=== PATIENT | male | born 1975 ===

== ENCOUNTER 2016-06-20 15:05 | Emergency (ER) | payer OTHER ==
--- NOTE | 2016-06-20 15:38 | UC ---
Back Pain HPI - HPI Summary HPI Summary: The patient comes in today for: 1. Back pain: Onset: 2 days initially, but he states that he has pain for "years." Palliative/provocative: Movement seems to be associated with some relief. Laying for "any amount of time" makes the pain worse. Quality: Sharp, and constant dull Region: Lower left back with radiation down the left leg. Severity: 11/27 Time: Constant. Associated symptoms: Work: He is in construction. Event: Nothing specific caused the back pain. Treatment: Ibuprofen 1200 mg plus 2 regular today at 10 AM Previous care: He saw a physician about 5 years ago. Diagnosis (MRI done) showed a mild bulging disk and degenerative disc disease. Bowel/bladder incontinence: None. Unexpected weight loss: None. Fevers: None. Numb left fingers--(thumb, index finger and middle finger) for "a couple of months." Travel Pt strength if "Pretty good." But, in the morning he states it is a bit weak. He states that he is ambidextrous. PCP: None--[facility]. He can't remember who the specialist was for his back. Spasm: present from time to time. * - History of Current Complaint Chief Complaint: UCBackPain Stated Complaint: BACK PAIN Time Seen by Provider: 06/20/16 15:20 Hx Obtained From: Patient, Family/Health Promotion Specialist - Allergies/Home Medications Allergies/Adverse Reactions: Allergies Allergy/AdvReac Type Severity Reaction Status Date / Time BROAD SPECTRUM ANTIBIOTIC Allergy Severe GI Uncoded 06/20/16 15:18 UPSET/PAIN Home Medications: Home Medications Aspirin TAB* 650 mg PO PRN 06/20/16 [History] Ibuprofen TAB* [Advil TAB*] 6 tab PO PRN 06/20/16 [History] PMH/Surg Hx/FS Hx/Imm Hx Previously Healthy: Yes Endocrine History Of: Denies: Diabetes, Thyroid Disease, Hyperthyroidism, Hypothyroidism, Dyslipidemia Cardiovascular History Of: Denies: Cardiac Disorders, Hypertension, Pacemaker/ICD, Myocardial Infarction , Congestive Heart Failure, Atrial Fibrillation, Deep Vein Thrombosis, Bleeding Disorders Respiratory History Of: Denies: COPD, Asthma, Bronchitis, Pneumonia, Pulmonary Embolism GI/ History Of: Denies: Gastroesophageal Reflux, Ulcer, Gastrointestinal Bleed, Gall Bladder Disease, Kidney Stones, Diverticulitis, Renal Disease, Urosepsis Neurological History Of: Denies: TIA, CVA, Dementia, Seizures, Migraine Psychological History Of: Denies: Anxiety, Depression, Bipolar Disorder, Schizophrenia, Post Traumatic Stress Disorder Cancer History Of: Denies: Lung Cancer, Colorectal Cancer, Breast Cancer, Prostate Cancer, Cervical Cancer Other History Of: Negative For: HIV, Hepatitis B, Hepatitis C, Anticoagulant Therapy - Surgical History Surgical History: None - Family History Known Family History: Negative: Cardiac Disease, Hypertension - Social History Occupation: Employed Full-time Alcohol Use: None Substance Use Type: None Smoking Status (MU): Current Every Day Smoker Type: Cigarettes Amount Used/How Often: <1 PPD Review of Systems Constitutional: Negative Skin: Negative Eyes: Negative ENT: Negative Respiratory: Negative Cardiovascular: Negative Gastrointestinal: Negative Genitourinary: Negative Musculoskeletal: Myalgia All Other Systems Reviewed And Are Negative: Yes Physical Exam Triage Information Reviewed: Yes Appearance: Well-Appearing, Well-Nourished, Pain Distress - The patient came into the examination room leaning to one side. Even slight movement was associated with spasms which were jolting to the patient and at one point lead to the patient crying for a short time. This was worse with movement during the back exam. Vital Signs: Initial Vital Signs Temp 98.4 F 06/20/16 15:14 Pulse 120 06/20/16 15:14 Resp 18 06/20/16 15:14 BP 139/94 06/20/16 15:14 Pulse Ox 99 06/20/16 15:14 Vital Signs Reviewed: Yes Eyes: Positive: Conjunctiva Clear. Negative: Discharge ENT: Positive: Hearing grossly normal. Negative: Pharyngeal erythema, Nasal congestion, Nasal drainage, TM bulging, TM dull, TM red, Tonsillar swelling, Tonsillar exudate Dental: Negative: Gross Decay/Caries @, Dental Fracture @ Neck: Positive: Supple, Nontender, No Lymphadenopathy. Negative: Nuchal Rigidity Respiratory: Positive: Lungs clear, No respiratory distress, No accessory muscle use. Negative: Crackles, Rhonchi, Wheezing Cardiovascular: Positive: RRR, No Murmur Abdomen Description: Positive: Nontender, No Organomegaly, Soft. Negative: Distended, Guarding Musculoskeletal: Positive: Strength Intact, ROM Limited @, Other: - Back: He has marked tenderness along the right paraspinous musculature in the lumbar region. He has limited movement with left flexion--a bit more on the right. There was no extention and forward flexion was associated with increased spasm and the patient crying. He had almost full extension of this legs, but this was associated with pain going down his thigh on the left. The DTR were 0/2 for both legs in terms of leg movement, but there was twitching of the quadriceps muscles. There was very little movement with Achilles tendon percussion. Neurological: Positive: Alert, Muscle Tone Normal Psychological: Positive: Age Appropriate Behavior, Consolable Skin: Negative: rashes, breakdown Back Pain Course/Dx - Course Course Of Treatment: Patient told of his diagnostic and treatment options. At this time, he did not want a repeat of his lumbar spine x-ray, but was agreeable to taking pain medication and muscle relaxers. He promised that he would follow up with his primary care provider at [facility] tuesday and would go to the ER if he gets worse. - Differential Dx/Diagnosis Provider Diagnoses: Lower back pain (muscular strain, spasm, possible herniated disc). Discharge - Discharge Plan Condition: Stable Disposition: HOME Patient Education Materials: Low Back Strain (ED), Acute Low Back Pain (ED), Lumbar Radiculopathy (ED), Chronic Back Pain (ED) Forms: *Work Release Additional Instructions: Please contact your primary care provider at [facility] early tuesday for re-evaluation. If you get worse between now and then, please go to the ER at [facility].
[2016-06-20] MEDS: Cyclobenzaprine TAB* 10 MG PO ONE ×2 (16:11→16:12)
[2016-06-20] MEDS: HYDROcodone/ACETAMIN 5-325 MG* 1 TAB PO ONE ×2 (16:11→16:12)
== END 2016-06-20 16:25 | disposition home or self-care (01) ==
LOC: UCEAST 15:05
DX: M54.5 Low back pain (principal); Z88.1 Allergy status to other antibiotic agents; F17.210 Nicotine dependence, cigarettes, uncomplicated
CPT/HCPCS: 99202; A9270-GY; G0463